=== PATIENT | female | born 1990 | race Caucasian/White ===

== ENCOUNTER 2020-09-26 12:10 | Emergency (ER) | payer OTHER ==
[~2020-09-26 12:10] MED LIST: BACTROBAN OINT22 GM TOP
== END 2020-09-26 13:30 | disposition home or self-care (01) ==
LOC: ER1 12:10
DX: K04.7 Periapical abscess without sinus (principal); F17.210 Nicotine dependence, cigarettes, uncomplicated; Z88.0 Allergy status to penicillin
CPT/HCPCS: 41800; 96372; 99283; J1885

== ENCOUNTER → 2022-01-22 | Emergency (ER) | payer SELFPAY | END | disposition left against medical advice (07) | LOC: ER1 10:49 | DX: Z53.21 Procedure and treatment not carried out due to patient leaving prior to being seen by health care provider (principal) ==